=== PATIENT | male | born 1970 | race Caucasian/White ===

== ENCOUNTER 2017-12-30 16:10 | Emergency (ER) | payer MEDICAID ==
[2017-12-30] MEDS ORDERED: Fluor-I-Strip/Ful-Flo OP ONE ×2 (16:31→17:02)
[2017-12-30] MEDS ORDERED: Eye-Stream Solution ONE (16:31)
[2017-12-30] MEDS ORDERED: TETRACAINE 0.5% STERI-UNIT SOL OP ONE (16:31)
[2017-12-30 16:32] VITALS: O2SAT 98
[2017-12-30] MEDS ORDERED: Ciloxan OPHTH OP ONE (16:56)
[2017-12-30] MEDS ORDERED: Acular OPTH SOL OP ONE ×2 (16:56→17:06)
[2017-12-30] MEDS ORDERED: Adacel Vial IM ONE ×2 (16:56→17:07)
[2017-12-30] MEDS ORDERED: TETRACAINE 0.5% STERI-UNIT SOL OP STA (17:02)
[2017-12-30] MEDS ORDERED: Eye-Stream Solution OP ONE (17:02)
[2017-12-30] MEDS ORDERED: Ciloxan OPHTH ONE (17:06)
--- NOTE | 2017-12-30 17:07 | ERPHSYRPT ---
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 He thinks some welding dust went under his glasses and caused irritation or FB. Unsure last tetanus. No blurred vision. Wears glasses but no recent eye exam. Healthy. Timing/Duration: yesterday Visual Assistive Devices: Glasses Allergies/Adverse Reactions: No Known Drug Allergies Allergy (Verified 12/30/17 16:34) Hx Tetanus, Diphtheria Vaccination/Date Given: No Hx Influenza Vaccination/Date Given: No Hx Pneumococcal Vaccination/Date Given: No Immunizations Up to Date: Yes - Review of Systems Constitutional: No Symptoms Eyes: Discharge (clear), Eye Pain (right), Eye Redness (right), Photophobia, Tearing, No Itchy, No Vision Changes - Past Medical History Pertinent Past Medical History: No - Past Surgical History Past Surgical History: No - Social History Smoking Status: Current every day smoker Drug Use: none Patient Lives Alone: No - Nursing Vital Signs Nursing Vital Signs: Initial Vital Signs Temperature 98 F 12/30/17 16:10 Pulse Rate 92 H 12/30/17 16:10 Respiratory Rate 18 12/30/17 16:10 Blood Pressure 149/97 12/30/17 16:10 O2 Sat by Pulse Oximetry 98 12/30/17 16:10 Pain Scale Pain Intensity 7 - Physical Exam General Appearance: alert Vision Acuity Degree Evaluation Phase: Uncorrected Eye Exam: bilateral eye: PERRL, EOMI Ears, Nose, Throat Exam: moist mucous membranes Neurologic: alert, oriented x 3, cooperative Skin Exam: warm, dry, No rash SpO2: 98 Oxygen Delivery: Room Air Comments: right eye has conjunctival injection. Acuity ok per RN. Tetracaine used. Lid everted with no FB. There is punctate abrasion with fluoroscin uptake in centeral pupil area. No FB on swab. - Course Nursing assessment & vital signs reviewed: Yes Ordered Tests: Active Orders 24 hr Category Date Time Status Visual Acuity STAT Care 12/30/17 17:02 Active Medication Summary Discontinued Medications Generic Name Dose Route Start Last Admin Trade Name Mindy PRN Reason Stop Dose Admin Ciprofloxacin 2.5 ml 12/30/17 16:56 Ciloxan Ophth OP 12/30/17 16:57 STAT ONE Diphtheria/Tetanus/Acell Pertussis 0.5 ml 12/30/17 16:56 Adacel Vial IM 12/30/17 16:57 .ONCE ONE Eye Irrigation Solution Confirm 12/30/17 16:31 Eye-Stream Solution Administered 12/30/17 16:32 Dose 30 ml .ROUTE .STK-MED ONE Fluorescein Sodium Confirm 12/30/17 16:31 Cqdda-O-Brbwm/Ful-Jerome Administered 12/30/17 16:32 Dose 1 mg OP .STK-MED ONE Ketorolac Tromethamine 5 ml 12/30/17 16:56 Acular Opth Zarina OP 12/30/17 16:57 STAT ONE Tetracaine HCl Confirm 12/30/17 16:31 Tetracaine 0.5% Steri-Unit Zarina Administered 12/30/17 16:32 Dose 4 ml OP .STK-MED ONE - Progress Progress Note: 12/30/17 17:05 Tetanus up dated. Cipro and acular started. Advised eye exam Monday to rule out residual FB with slit lamp and to further assess abrasion. Counseled pt/family regarding: diagnosis, need for follow-up - Departure Time of Disposition: 17:06 Departure Disposition: Home Clinical Impression: corneal abrasion right eye Condition: Stable Critical Care Time: No Referrals: ARIANA HARMAN MD [Primary Care Provider] - JHON PIERCE, FREDA [NON-STAFF PHY W/O PRIVILEGES] - PAPI RIVAS [NON-STAFF PHY W/O PRIVILEGES] - Instructions: Foreign Body in Eye (DC), Corneal Abrasion (DC) Additional Instructions: EYE PROBLEM 1. If a patch is applied, your vision will be impaired. Do not drive. 2. The more you rest your good eye, the better your affected eye will feel. 3. Use any eye drops or ointments as prescribed by the emergency room physician. 4. See your family physician or return to the emergency department for any increasing pain or decreased vision. 5. Use good hygiene and keep eye clean. 6. Do not rub the eye. Cipro drop every 6 hours Ketorolac drop every 6 hours See eye doctor Monday
[2017-12-30 17:22] VITALS: BP 136/90; PULSE 68
== END 2017-12-30 17:15 | disposition home or self-care (01) ==
LOC: ED 16:10
DX: S05.01XA Injury of conjunctiva and corneal abrasion without foreign body, right eye, initial encounter (principal); W22.8XXA Striking against or struck by other objects, initial encounter
CPT/HCPCS: 90471; 90715; 99283; A9270-GY

== ENCOUNTER 2021-06-23 17:27 | Emergency (ER) | payer MEDICAID, OTHER ==
[2021-06-23] MEDS ORDERED: Sodium Chloride 0.9% 1000 ML 1,000 ML IV STA (17:54)
[2021-06-23] MEDS ORDERED: TYLENOL 325 MG PO ONE (17:54)
[2021-06-23] MEDS ORDERED: TORAdol 30 mg Injection IV ONE (17:54)
[2021-06-23] MEDS ORDERED: Compazine 10 MG/2 ML IV ONE (17:55)
[2021-06-23 18:05] LABS: Absolute Neutrophil Ct (ANC) 5.02 (1.4-6.9); BASOPHIL % 0.2 % (0.0-0.4); Basophil (Absolute #) 0.01 (0-0.4); Eosinophil % 2.1 % (0.00-5.0); Eosinophil (Absolute #) 0.13 (0-0.5); Hematocrit 41.2 % (42-50); Hemoglobin 14.1 gm/dl (12.5-18.0); Lymphocyte (Absolute #) 0.53 (1.0-4.6); Lymphocytes % 8.8 % (24.0-44.0); Mean Cell Volume 94.7 fl (78-100); Mean Corpuscular Hemoglobin 32.4 pg (26-32); Mean Corpuscular Hgb Concent. 34.2 g/dl (32-36); Mean Platelet Volume 9.5 fl (7.5-11.0); Monocyte (Absolute #) 0.36 (0.0-1.3); Neutrophil % 82.9 % (36.0-66.0); Platelet Count 239 K/mm3 (150-450); Red Blood Count 4.35 M/mm3 (4.1-5.6); Red Cell Distribution Width 13.7 % (11.5-14.0); White Blood Count 6.1 K/mm3 (4.0-10.5)
[2021-06-23] MEDS ORDERED: Sodium Chloride 0.9% 1000 ML 1,000 ML ONE ×2 (18:08→19:45)
[2021-06-23] MEDS ORDERED: Compazine 10 MG/2 ML ONE (18:08)
[2021-06-23] MEDS ORDERED: TORAdol 30 mg Injection ONE (18:08)
[2021-06-23] MEDS ORDERED: TYLENOL 325 MG ONE (18:08)
--- NOTE | 2021-06-23 18:15 | ERPHSYRPT ---
- History of Present Illness Time Seen by Provider: 06/23/21 17:40 Source: patient Exam Limitations: no limitations Patient Subjective Stated Complaint: Pt stated that he got his first covid vaccine on Monday and became sick on Monday and was tested and it came back today negative, pt has fever, body aches and headache, got vaccine on Monday but also had a positive test on Monday Triage Nursing Assessment: Pt was brought to the ER by his , tachycardic, hypertensive, tachypnic, rates head pain as 7/10, pulses normal, skin n/h/d, nausea, denies vomiting, denies diarrhea Physician History: Patient is a 51-year-old male presents to our ED for evaluation of a fever body aches and headache. Patient advises that he had his Covid vaccination on Monday. 3 days later he became ill. Patient had a Covid test that was negative. He advises that his tested positive. Patient took 800 mg of ibuprofen prior to arrival. Patient experienced some mild nausea however no vomiting. Patient is currently febrile with a mild tachycardia. Symptoms are constant. Symptoms are moderate in intensity. No specific worsening or improving factors. No diarrhea. No rash. No chest pain or shortness of breath no trauma. Patient states otherwise healthy. No known allergies. He voices no other complaints or concerns at this time. Timing/Duration: yesterday (1 day) Severity: moderate Modifying Factors: Improves With: ibuprofen Associated Symptoms: nausea, headaches, No abdominal pain, No shortness of breath (No chest pain or shortness of breath.), No rash, No syncope, No seizure, No weakness Allergies/Adverse Reactions: No Known Drug Allergies Allergy (Verified 06/23/21 17:50) Home Medications: No Reportable Medications [No Reported Medications] 06/23/21 [History] Hx Tetanus, Diphtheria Vaccination/Date Given: No Hx Influenza Vaccination/Date Given: No Hx Pneumococcal Vaccination/Date Given: No Travel Risk - International Travel Have you traveled outside of the country in past 3 weeks: No - Coronavirus Screening Symptoms: Fever, Headaches/Body Aches/Fatigue Close contact with a COVID-19 positive Pt in past 14-21 Days: No - Vaccine Status Have you recieved a Covid-19 vaccination: Yes 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[employer] - Vaccination Dates Date of 2cond Vaccination (if applicable): none - Review of Systems Constitutional: No Symptoms, No Fever, No Chills Eyes: No Symptoms Ears, Nose, & Throat: No Symptoms Respiratory: No Symptoms, No Cough, No Dyspnea Cardiac: No Symptoms, No Chest Pain, No Edema, No Syncope Abdominal/Gastrointestinal: No Symptoms, No Abdominal Pain, No Nausea, No Vomiting, No Diarrhea Genitourinary Symptoms: No Symptoms, No Dysuria Musculoskeletal: No Symptoms, No Back Pain, No Neck Pain Skin: No Symptoms, No Rash Neurological: No Symptoms, No Dizziness, No Focal Weakness, No Sensory Changes Psychological: No Symptoms Endocrine: No Symptoms Hematologic/Lymphatic: No Symptoms Immunological/Allergic: No Symptoms All Other Systems: Reviewed and Negative - Past Medical History Pertinent Past Medical History: No - Past Surgical History Past Surgical History: No - Social History Smoking Status: Current every day smoker Exposure to second hand smoke: Yes Drug Use: none Patient Lives Alone: No - Nursing Vital Signs Nursing Vital Signs: Initial Vital Signs Temperature 102.8 F 06/23/21 17:34 Pulse Rate 117 H 06/23/21 17:34 Respiratory Rate 23 06/23/21 17:34 Blood Pressure 145/101 06/23/21 17:34 O2 Sat by Pulse Oximetry 96 06/23/21 17:34 Pain Scale Pain Intensity 2 - Physical Exam General Appearance: no apparent distress, alert, other (Skin warm to touch.) Eye Exam: PERRL/EOMI, eyes nml inspection, No scleral icterus Ears, Nose, Throat Exam: normal ENT inspection, TMs normal, pharynx normal, moist mucous membranes Neck Exam: normal inspection, non-tender, supple, full range of motion Respiratory Exam: normal breath sounds, lungs clear, airway intact, No chest tenderness, No respiratory distress Cardiovascular Exam: regular rate/rhythm (Mild tachycardia), normal heart sounds, normal peripheral pulses Gastrointestinal/Abdomen Exam: soft, normal bowel sounds, No tenderness, No mass, No organomegaly, No splenomegaly Back Exam: normal inspection, normal range of motion, No CVA tenderness, No vertebral tenderness Extremity Exam: normal inspection, normal range of motion, pelvis stable Neurologic Exam: alert, oriented x 3, cooperative, medical assembler II-XII nml as tested, normal mood/affect, sensation nml, No motor deficits, No sensory deficit, No confusion, No agitation, No intoxicated appearance Skin Exam: normal color, warm, dry, No rash Lymphatic Exam: No adenopathy SpO2 Interpretation: normal SpO2: 96 O2 Delivery: Room Air - Course Nursing assessment & vital signs reviewed: Yes Ordered Tests: Active Orders 24 hr Category Date Time 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 06/23/21 18:24 Active IV Insertion STAT Care 06/23/21 18:24 Active CBC W DIFF Stat Lab 06/23/21 18:00 Completed CMP Stat Lab 06/23/21 18:00 Completed Medication Summary Generic Name Dose Route Start Last Admin Trade Name Mindy PRN Reason Stop Dose Admin Magnesium Sulfate/Dextrose 100 mls @ 100 mls/hr 06/23/21 18:30 06/23/21 19:07 Magnesium 1 Gm / 100 Ml D5w IV 06/23/21 20:29 100 mls/hr Q1H BERNICE Administration Potassium Chloride 20 meq in 100 mls @ 50 mls/hr 06/23/21 18:30 06/23/21 19:47 Potassium Chloride 20 Meq In Water 100ml IV 06/23/21 22:29 50 mls/hr Q2H BERNICE Administration Sodium Chloride 1,000 mls @ 250 mls/hr 06/23/21 19:45 06/23/21 19:47 Sodium Chloride 0.9% 1000 Ml IV 07/23/21 19:44 250 mls/hr .Q4H BERNICE Administration Discontinued Medications Generic Name Dose Route Start Last Admin Trade Name Mindy PRN Reason Stop Dose Admin Acetaminophen 975 mg 06/23/21 17:54 06/23/21 18:12 Tylenol 325 Mg PO 06/23/21 17:55 975 mg STAT ONE Administration Acetaminophen Confirm 06/23/21 18:08 Tylenol 325 Mg Administered 06/23/21 18:09 Dose 975 mg .ROUTE .STK-MED ONE Sodium Chloride 1,000 mls @ 999 mls/hr 06/23/21 17:54 06/23/21 20:06 Sodium Chloride 0.9% 1000 Ml IV 06/23/21 18:54 Infused .Q1H1M STA Infusion Sodium Chloride Confirm 06/23/21 18:08 Sodium Chloride 0.9% 1000 Ml Administered 06/23/21 18:09 Dose 1,000 mls @ ud .ROUTE .STK-MED ONE Ketorolac Tromethamine 30 mg 06/23/21 17:54 06/23/21 18:12 Toradol 30 Mg Injection IV 06/23/21 17:55 30 mg STAT ONE Administration Ketorolac Tromethamine Confirm 06/23/21 18:08 Toradol 30 Mg Injection Administered 06/23/21 18:09 Dose 30 mg .ROUTE .STK-MED ONE Potassium Chloride 40 meq 06/23/21 18:21 06/23/21 18:30 Klor Con 10 Meq PO 06/23/21 18:22 40 meq STAT ONE Administration Potassium Chloride Confirm 06/23/21 18:25 Klor Con 10 Meq Administered 06/23/21 18:26 Dose 40 meq PO .STK-MED ONE Prochlorperazine Edisylate 10 mg 06/23/21 17:55 06/23/21 18:12 Compazine 10 Mg/2 Ml IV 06/23/21 17:56 10 mg STAT ONE Administration Prochlorperazine Edisylate Confirm 06/23/21 18:08 Compazine 10 Mg/2 Ml Administered 06/23/21 18:09 Dose 10 mg .ROUTE .STK-MED ONE Lab/Rad Data: Laboratory Result Diagrams 06/23/21 18:00 06/23/21 18:00 Laboratory Results 06/23/21 06/23/21 Range/Units 18:00 18:00 WBC 6.1 (4.0-10.5) K/mm3 RBC 4.35 (4.1-5.6) M/mm3 Hgb 14.1 (12.5-18.0) gm/dl Hct 41.2 L (42-50) % MCV 94.7 (78-100) fl MCH 32.4 H (26-32) pg MCHC 34.2 (32-36) g/dl RDW 13.7 (11.5-14.0) % Plt Count 239 (150-450) K/mm3 MPV 9.5 (7.5-11.0) fl Gran % 82.9 H (36.0-66.0) % Eos # (Auto) 0.13 (0-0.5) Absolute Lymphs (auto) 0.53 L (1.0-4.6) Absolute Monos (auto) 0.36 (0.0-1.3) Lymphocytes % 8.8 L (24.0-44.0) % Monocytes % 6.0 (0.0-12.0) % Eosinophils % 2.1 (0.00-5.0) % Basophils % 0.2 (0.0-0.4) % Absolute Granulocytes 5.02 (1.4-6.9) Basophils # 0.01 (0-0.4) Sodium 136 L (137-145) mmol/L Potassium 2.9 L* (3.5-5.1) mmol/L Chloride 103 (98-107) mmol/L Carbon Dioxide 23 (22-30) mmol/L Anion Gap 13.3 (5-15) MEQ/L BUN 10 (9-20) mg/dL Creatinine 1.06 (0.66-1.25) mg/dL Estimated GFR > 60.0 ML/MIN Glucose 139 H (74-106) mg/dL Calcium 9.1 (8.4-10.2) mg/dL Total Bilirubin 0.40 (0.2-1.3) mg/dL AST 29 (17-59) U/L ALT 21 (0-50) U/L Alkaline Phosphatase 79 (38-126) U/L Serum Total Protein 6.7 (6.3-8.2) g/dL Albumin 4.0 (3.5-5.0) g/dL - Progress Progress: improved Progress Note: Patient reassessed. He feels much better. Patient states he is ready for discharge. Vitals stable. Oxygen saturation and heart rate are within normal limits. Patient was hypokalemic. Potassium infused. Magnesium infused as potassium is typically low during states of hypokalemia. Patient agrees to follow-up with his primary care doctor within 48 hours for reevaluation. He vo ices no other complaints concerns at this time. Portions of this note were created with voice recognition technology. There may be grammatical, spelling, punctuation or sound alike errors 06/23/21 21:14 Counseled pt/family regarding: lab results, diagnosis, need for follow-up - Departure Departure Disposition: Home Clinical Impression: Viral syndrome Condition: Stable Critical Care Time: No Referrals: USMAN CADE [Primary Care Provider] - Additional Instructions: Discharge/Care Plan ANDRÉS MATIAS was seen on 06/23/21 in the Emergency Room. The patient was couns eled regarding Diagnosis,Lab results, Imaging studies, need for follow up and when to return to the Emergency Room. Prescriptions given: Discharge Note I have spoken with the patient and/or caregivers. I have explained the patient's condition, diagnosis and treatment plan based on the information available to me at this time. I have answered the patient's and/or caregiver's questions and addressed any concerns. The patient and/or caregivers have as good understanding of the patient's diagnosis, condition and treatment plan as can be expected at this point. The vital signs have been stable. The patient's condition is stable and appropriate for discharge from the emergency department. The patient will pursue further outpatient evaluation with the primary care physician or other designated or consulting physician as outlined in the discharge instructions. The patient and/or caregivers are agreeable to this plan of care and follow-up instructions have been explained in detail. The patient and/or caregivers have received these instruction. The patient/and or caregivers are aware that any significant change in condition or worsening of symptoms should prompt an immediate return to this or the closest emergency department or call 911.
[2021-06-23 18:17] LABS: ALKALINE PHOSPHATASE 79 U/L (38-126); ANION GAP 13.3 MEQ/L (5-15); BLOOD UREA NITROGEN 10 mg/dL (9-20); CHLORIDE 103 mmol/L (98-107); Calcium 9.1 mg/dL (8.4-10.2); Carbon Dioxide 23 mmol/L (22-30); Creatinine 1 1.06 mg/dL (0.66-1.25); EST GLOMERULAR FILTRATION RATE > 60.0 ML/MIN; Glucose 139 mg/dL (74-106); SGOT/AST 29 U/L (17-59); SGPT/ALT 21 U/L (0-50); SODIUM 136 mmol/L (137-145); Total Protein 6.7 g/dL (6.3-8.2)
[2021-06-23 18:20] LABS: Potassium 2.9 mmol/L (3.5-5.1)
[2021-06-23] MEDS ORDERED: Klor Con 10 MEQ PO ONE ×2 (18:21→18:25)
[2021-06-23] MEDS ORDERED: POTASSIUM CHLORIDE 20 mEq IN WATER 100ML 100 ML IV ONE ×2 (18:25→19:15)
[2021-06-23] MEDS ORDERED: Magnesium 1 Gm / 100 Ml D5W*** 100 ML IV ONE ×2 (18:25→19:05)
[2021-06-23] MEDS: Magnesium 1 Gm / 100 Ml D5W*** 100 ML IV SCH ×2 (18:30→19:07)
[2021-06-23] MEDS: POTASSIUM CHLORIDE 20 mEq IN WATER 100ML 20 MEQ/100 ML BAG IV SCH ×2 (18:30→19:47)
[2021-06-23] MEDS ORDERED: Sodium Chloride 0.9% 1000 ML 1,000 ML IV SCH (19:45)
[2021-06-23 22:03] VITALS: BP 110/78; PULSE 78; O2SAT 97
[2021-06-24 05:07] LABS: Slide Review 1 YES
== END 2021-06-23 22:03 | disposition home or self-care (01) ==
LOC: ED 17:27
DX: B34.9 Viral infection, unspecified (principal)
CPT/HCPCS: 36000; 36415; 80053; 85025; 93041; 96360; 96365; 96366; 96367; 96374; 96375; 99285; J1885; J3475; J3480; A9270-GY

== ENCOUNTER 2021-12-09 14:33 | Emergency (ER) | payer SELFPAY ==
[2021-12-09 15:58] VITALS: PULSE 85; O2SAT 94
--- NOTE | 2021-12-09 16:41 | ERPHSYRPT ---
- History of Present Illness Time Seen by Provider: 12/09/21 16:02 Patient Subjective Stated Complaint: pt c/o of hypertension Triage Nursing Assessment: Pt brought self to the ER, hypertensive, denies pain, pt used to be on metoprolol but hasn't been for a long time but took one a litlle bit ago thinking it would lower his blood pressure, is pressure at home was 159/113, pulses normal, skin n/w/d, doesn't appear to be in any distress Physician History: 51 years old male with history of heavy tobacco abuse, hypertension not taking any medication for quite some time presented in the ER with chief complaint of elevated blood pressure 150 systolic earlier today at home. Patient report he has not been feeling well with cough congestion, stopped up nose/head cold with minimal headache and has been tested twice with negative COVID-19 although his is tested positive. Denies any chest pain but minimal nonproductive cough at times. Feeling of malaise. He checked his blood pressure and it was elevated, took his leftover from previous metoprolol 50 mg and rechecked and it did not improve and decided to reported in the ER. Denies any chest pain palpitations or shortness of breath. Denies any blurry vision, numbness tingling or weakness. Timing/Duration: today, gradual onset Severity: moderate Associated Symptoms: cough, malaise Allergies/Adverse Reactions: No Known Drug Allergies Allergy (Verified 12/09/21 15:58) Hx Tetanus, Diphtheria Vaccination/Date Given: No Hx Influenza Vaccination/Date Given: No Hx Pneumococcal Vaccination/Date Given: No Travel Risk - International Travel Have you traveled outside of the country in past 3 weeks: No - Coronavirus Screening Are you exhibiting any of the following symptoms?: No Close contact with a COVID-19 positive Pt in past 14-21 Days: No - Vaccine Status Have you recieved a Covid-19 vaccination: Yes 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: [employer] - Vaccination Dates Date of 2cond Vaccination (if applicable): none - Review of Systems Constitutional: No Symptoms Eyes: No Symptoms Ears, Nose, & Throat: Nose Congestion, Sinus Drainage Respiratory: Cough Cardiac: No Symptoms Abdominal/Gastrointestinal: No Symptoms Genitourinary Symptoms: No Symptoms Musculoskeletal: Myalgias Skin: No Symptoms Neurological: Headache Psychological: No Symptoms Endocrine: No Symptoms Hematologic/Lymphatic: No Symptoms Immunological/Allergic: No Symptoms - Past Medical History Pertinent Past Medical History: No - Past Surgical History Past Surgical History: No - Social History Smoking Status: Current every day smoker Exposure to second hand smoke: Yes Drug Use: none Patient Lives Alone: No - Nursing Vital Signs Nursing Vital Signs: Initial Vital Signs Pulse Rate 85 12/09/21 15:40 Blood Pressure 164/103 12/09/21 15:40 O2 Sat by Pulse Oximetry 94 L 12/09/21 15:40 Pain Scale Pain Intensity 0 - Physical Exam General Appearance: no apparent distress, alert, anxiety Eye Exam: PERRL/EOMI, eyes nml inspection Ears, Nose, Throat Exam: normal ENT inspection, TMs normal, pharynx normal, moist mucous membranes Neck Exam: normal inspection, non-tender, supple, full range of motion Respiratory Exam: normal breath sounds, lungs clear Cardiovascular Exam: regular rate/rhythm, normal heart sounds Gastrointestinal/Abdomen Exam: soft, normal bowel sounds Back Exam: normal inspection, normal range of motion Extremity Exam: normal inspection, normal range of motion Neurologic Exam: alert, oriented x 3, cooperative, management developer II-XII nml as tested, nml cerebellar function, nml station & gait, sensation nml, No normal mood/affect (Anxious) Skin Exam: normal color SpO2 Interpretation: normal SpO2: 94 O2 Delivery: Room Air - Course EKG Interpreted by Me: RATE (73), Sinus Rhythm, NORMAL AXIS, NORMAL INTERVALS, NORMAL QRS - Progress Progress: unchanged Progress Note: 12/09/21 16:43 Patient is not in any distress. Lungs bilateral clear to auscultation. Maintaining oxygen saturation around 96% on room air. Heart rate in 70s. Although blood pressure is mildly elevated in 160s, could be some element of whitecoat hypertension. But I believe patient needs to be on antihypertensives. He has been taking in the past metoprolol 50 which I would restart him and have him outpatient follow-up with primary care. Recommended supportive care for URI symptoms and outpatient follow-up. Counseled pt/family regarding: diagnosis, need for follow-up - Departure Departure Disposition: Home Clinical Impression: Hypertension, URI (upper respiratory infection) Condition: Stable Critical Care Time: No Referrals: USMAN CADE [Primary Care Provider] - Follow up/PCP as directed (1-2 days for reevaluation) Instructions: Malignant Hypertension (DC) Additional Instructions: Take Tylenol as as needed for aches and pains/headaches. Follow-up with primary care for reevaluation. Monitor your blood pressure regularly, keep a log and follow-up with PCP to see if needs any adjustment in medications. Return to ER for persistent high blood pressure, headache, numbness tingling weakness or blurry vision etc. Prescriptions: Metoprolol Succinate 50 mg [Toprol Xl 50 MG] 50 mg PO DAILY 30 Days #30 tablet
[2021-12-09 16:58] VITALS: BP 150/116
== END 2021-12-09 16:58 | disposition home or self-care (01) ==
LOC: ED 14:33
DX: I10 Essential (primary) hypertension (principal); J06.9 Acute upper respiratory infection, unspecified; Z72.0 Tobacco use; R05.9 Cough, unspecified; R09.81 Nasal congestion; R51.9 Headache, unspecified; R53.81 Other malaise; Z20.822 Contact with and (suspected) exposure to COVID-19
CPT/HCPCS: 99283

== ENCOUNTER 2023-11-21 11:51 | Observation (INO) | payer OTHER ==
[2023-11-21] MEDS ORDERED: Sodium Chloride 0.9% 1000 ML 1,000 ML IV SCH (12:30)
--- NOTE | 2023-11-21 12:30 | ERPHSYRPT ---
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 Pt ambulates with a slow gait, able to speak in clear full sentences. Pt resting comfortably on the bed. Physician History: Patient is a 53-year-old male presents to our ED for evaluation of dizziness and near syncope. 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 Patient began to feel "odd". Patient states the room began to spin he felt as though he was going to pass out. No associated chest pain or shortness of breath. No nausea vomiting or diaphoresis. No numbness tingling or weakness. Symptoms have improved but not resolved. Symptoms when present are moderate in intensity. No specific worsening or improving factors. Patient is a smoker and history of hypertension . Patient states otherwise healthy. He voices no other complaints or concerns at this time. Portions of this note were created with voice recognition technology. There may be grammatical, spelling, punctuation or sound alike errors Timing/Duration: today Severity: moderate Modifying Factors: Improves With: nothing Associated Symptoms: denies symptoms Allergies/Adverse Reactions: No Known Drug Allergies Allergy (Verified 12/09/21 15:58) Home Medications: Amlodipine Besylate 5 mg [Norvasc 5 mg] 2.5 mg PO DAILY 11/21/23 [History] Hx Tetanus, Diphtheria Vaccination/Date Given: No Hx Influenza Vaccination/Date Given: No Hx Pneumococcal Vaccination/Date Given: No Immunizations Up to Date: No Travel Risk - International Travel Have you traveled outside of the country in past 3 weeks: No - Coronavirus Screening Are you exhibiting any of the following symptoms?: No Close contact with a COVID-19 positive Pt in past 14-21 Days: No - Vaccine Status Have you recieved a Covid-19 vaccination: 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[employer]: [employer] - Vaccination Dates Date of 2cond Vaccination (if applicable): none - Review of Systems Constitutional: No Symptoms, No Fever, No Chills Eyes: No Symptoms Ears, Nose, & Throat: No Symptoms Respiratory: No Symptoms, No Cough, No Dyspnea Cardiac: No Symptoms, No Chest Pain, No Edema, No Syncope Abdominal/Gastrointestinal: No Symptoms, No Abdominal Pain, No Nausea, No Vomiting, No Diarrhea Genitourinary Symptoms: No Symptoms, No Dysuria Musculoskeletal: No Symptoms, No Back Pain, No Neck Pain Skin: No Symptoms, No Rash Neurological: No Symptoms, No Dizziness, No Focal Weakness, No Sensory Changes Psychological: No Symptoms Endocrine: No Symptoms Hematologic/Lymphatic: No Symptoms Immunological/Allergic: No Symptoms All Other Systems: Reviewed and Negative - Past Medical History Pertinent Past Medical History: Yes Cardiac History: Hypertension - Past Surgical History Past Surgical History: No - Social History Smoking Status: Current every day smoker How long have you smoked: years Exposure to second hand smoke: Yes Drug Use: none Patient Lives Alone: No - Nursing Vital Signs Nursing Vital Signs: Initial Vital Signs Temperature 97.0 F 11/21/23 12:05 Pulse Rate 109 H 11/21/23 12:05 Respiratory Rate 20 11/21/23 12:05 Blood Pressure 127/86 11/21/23 12:05 O2 Sat by Pulse Oximetry 96 11/21/23 12:05 Pain Scale Pain Intensity 0 - Physical Exam General Appearance: no apparent distress, alert Eye Exam: PERRL/EOMI, eyes nml inspection Ears, Nose, Throat Exam: normal ENT inspection, TMs normal, pharynx normal, moist mucous membranes Neck Exam: normal inspection, non-tender, supple, full range of motion Respiratory Exam: normal breath sounds, lungs clear, No respiratory distress Cardiovascular Exam: regular rate/rhythm, normal heart sounds, normal peripheral pulses Gastrointestinal/Abdomen Exam: soft, normal bowel sounds, No tenderness, No mass Back Exam: normal inspection, normal range of motion, No CVA tenderness, No vertebral tenderness Extremity Exam: normal inspection, normal range of motion, pelvis stable Neurologic Exam: alert, oriented x 3, cooperative, normal mood/affect, nml cerebellar function, nml station & gait, sensation nml, No motor deficits Skin Exam: normal color, warm, dry, No rash Lymphatic Exam: No adenopathy SpO2 Interpretation: normal SpO2: 96 O2 Delivery: Room Air - Course Nursing assessment & vital signs reviewed: Yes EKG Interpreted by Me: RATE (99), Sinus Rhythm, NORMAL AXIS, NORMAL INTERVALS - CT Exams Head CT Interpretation: Tele-radiologist Report (No acute intracranial pathology) Ordered Tests: Active Orders 24 hr Category Date Time Status Needle [employer]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 STAT Care 11/21/23 12:21 Active EKG-ER Only STAT Care 11/21/23 12:21 Active IV Insertion STAT Care 11/21/23 12:21 Active Pulse Oximetry (ED) STAT Care 11/21/23 12:21 Active Tele-Health Consult ROUTINE Cons 11/21/23 13:27 Active HEAD WITHOUT CONTRAST [CT] Stat Exams 11/21/23 12:23 Completed CBC W DIFF Stat Lab 11/21/23 12:20 Completed CMP Stat Lab 11/21/23 12:20 Completed TROPONIN Q4H Lab 11/21/23 12:20 Completed TROPONIN Q4H Lab 11/21/23 16:30 Ordered TROPONIN Q4H Lab 11/21/23 20:30 Ordered UA W/RFX UR CULTURE Stat Lab 11/21/23 14:25 Completed Urine Triage Profile Stat Lab 11/21/23 14:25 Completed VBG [VENOUS BLOOD GAS] Stat Lab 11/21/23 14:29 Completed Medication Summary Generic Name Dose Route Start Last Admin Trade Name Freq PRN Reason Stop Dose Admin Sodium Chloride 1,000 mls @ 50 mls/hr 11/21/23 12:30 11/21/23 12:29 Sodium Chloride 0.9% 1000 Ml IV 12/21/23 12:29 50 mls/hr .Q20H BERNICE Administration Lab/Rad Data: Laboratory Result Diagrams 11/21/23 12:20 11/21/23 12:20 Laboratory Results 11/21/23 11/21/23 11/21/23 Range/Units 14:29 14:25 14:25 WBC (4.0-10.5) x10^3/uL RBC (4.1-5.6) x10^6/uL Hgb (12.5-18.0) g/dL Hct (42-50) % MCV (78-100) fL MCH (26-32) pg MCHC (32-36) g/dL RDW (11.5-14.0) % Plt Count (150-450) x10^3/uL MPV (7.5-11.0) fL Gran % (36.0-66.0) % Immature Gran % (Auto) (0.00-0.4) % Nucleat RBC Rel Count (0.00-0.1) % Eos # (Auto) (0-0.5) x10^3/uL Immature Gran # (Auto) (0.00-0.03) x10^3u/L Absolute Lymphs (auto) (1.0-4.6) x10^3/uL Absolute Monos (auto) (0.0-1.3) x10^3/uL Absolute Nucleated RBC (0.00-0.01) x10^3u/L Lymphocytes % (24.0-44.0) % Monocytes % (0.0-12.0) % Eosinophils % (0.00-5.0) % Basophils % (0.0-0.4) % Absolute Granulocytes (1.4-6.9) x10^3/uL Basophils # (0-0.4) x10^3/uL pO2/FiO2 Ratio 21.0 % VBG pH 7.42 (7.32-7.42) VBG pCO2 at Pat Temp 37 L (42-55) mm/Hg VBG pO2 at Pat Temp 24 L (25-40) mm/Hg VBG HCO3 24.0 (22-28) meq/L VBG O2 Sat (Robert) 67.7 L (95-100) VBG Base Excess -0.1 (-2.0-2.0) VBG Hemoglobin 15.9 VBG Carboxyhemoglobin 42.0 H* (0.0-6.9) % T HGB POC Potassium 4.1 (3.5-5.1) Sodium (137-145) mmol/L Potassium (3.5-5.1) mmol/L Chloride (98-107) mmol/L Carbon Dioxide (22-30) mmol/L Anion Gap (5-15) MEQ/L BUN (9-20) mg/dL Creatinine (0.66-1.25) mg/dL Estimated GFR ML/MIN Glucose (74-106) mg/dL Calcium (8.4-10.2) mg/dL Total Bilirubin (0.2-1.3) mg/dL AST (17-59) U/L ALT (0-50) U/L Alkaline Phosphatase (38-126) U/L Troponin I (0.000-0.034) ng/mL Serum Total Protein (6.3-8.2) g/dL Albumin (3.5-5.0) g/dL Urine Color Yellow (Yellow) Urine Appearance Clear (Clear) Urine pH 7.0 (4.6-8.0) Ur Specific [place] <=1.005 (1.005-1.030) Urine Protein Negative (Negative) Urine Glucose (UA) Negative (Negative) mg/dL Urine Ketones Negative (Negative) Urine Blood Negative (Negative) Urine Nitrite Negative (Negative) Urine Bilirubin Negative (Negative) Urine Urobilinogen 0.2 (0.2) mg/dL Ur Leukocyte Esterase Trace A (Negative) U Hyaline Cast (Auto) NONE SEEN (0-2) /LPF Urine Microscopic RBC 0-2 (0-5) /HPF Urine Microscopic WBC 0-2 (0-5) /HPF Ur Epithelial Cells None Seen (None Seen) /HPF Urine Bacteria None Seen (None Seen) /HPF Urine Culture Reflexed NO (NO) Urine Opiates Level NEGATIVE (NEGATIVE) Ur Methadone NEGATIVE (NEGATIVE) Urine Barbiturates NEGATIVE (NEGATIVE) Ur Phencyclidine (PCP) NEGATIVE (NEGATIVE) Urine Amphetamine NEGATIVE (NEGATIVE) U Benzodiazepine Level NEGATIVE (NEGATIVE) Urine Cocaine NEGATIVE (NEGATIVE) Urine Marijuana (THC) NEGATIVE (NEGATIVE) 11/21/23 11/21/23 11/21/23 Range/Units 12:20 12:20 12:20 WBC 10.1 (4.0-10.5) x10^3/uL RBC 4.82 (4.1-5.6) x10^6/uL Hgb 15.9 (12.5-18.0) g/dL Hct 44.9 (42-50) % MCV 93.2 (78-100) fL MCH 33.0 H (26-32) pg MCHC 35.4 (32-36) g/dL RDW 12.8 (11.5-14.0) % Plt Count 269 (150-450) x10^3/uL MPV 9.3 (7.5-11.0) fL Gran % 64.6 (36.0-66.0) % Immature Gran % (Auto) 0.4 (0.00-0.4) % Nucleat RBC Rel Count 0.0 (0.00-0.1) % Eos # (Auto) 0.29 (0-0.5) x10^3/uL Immature Gran # (Auto) 0.04 H (0.00-0.03) x10^3u/L Absolute Lymphs (auto) 2.82 (1.0-4.6) x10^3/uL Absolute Monos (auto) 0.38 (0.0-1.3) x10^3/uL Absolute Nucleated RBC 0.00 (0.00-0.01) x10^3u/L Lymphocytes % 27.8 (24.0-44.0) % Monocytes % 3.8 (0.0-12.0) % Eosinophils % 2.9 (0.00-5.0) % Basophils % 0.5 (0.0-0.4) % Absolute Granulocytes 6.55 (1.4-6.9) x10^3/uL Basophils # 0.05 (0-0.4) x10^3/uL pO2/FiO2 Ratio % VBG pH (7.32-7.42) VBG pCO2 at Pat Temp (42-55) mm/Hg VBG pO2 at Pat Temp (25-40) mm/Hg VBG HCO3 (22-28) meq/L VBG O2 Sat (Robert) (95-100) VBG Base Excess (-2.0-2.0) VBG Hemoglobin VBG Carboxyhemoglobin (0.0-6.9) % T HGB POC Potassium (3.5-5.1) Sodium 138 (137-145) mmol/L Potassium 3.4 L (3.5-5.1) mmol/L Chloride 105 (98-107) mmol/L Carbon Dioxide 22 (22-30) mmol/L Anion Gap 13.9 (5-15) MEQ/L BUN 10 (9-20) mg/dL Creatinine 0.91 (0.66-1.25) mg/dL Estimated GFR 101.4 ML/MIN Glucose 114 H (74-106) mg/dL Calcium 9.3 (8.4-10.2) mg/dL Total Bilirubin 0.50 (0.2-1.3) mg/dL AST 25 (17-59) U/L ALT 21 (0-50) U/L Alkaline Phosphatase 111 (38-126) U/L Troponin I < 0.012 (0.000-0.034) ng/mL Serum Total Protein 7.6 (6.3-8.2) g/dL Albumin 4.6 (3.5-5.0) g/dL Urine Color (Yellow) Urine Appearance (Clear) Urine pH (4.6-8.0) Ur Specific [place] (1.005-1.030) Urine Protein (Negative) Urine Glucose (UA) (Negative) mg/dL Urine Ketones (Negative) Urine Blood (Negative) Urine Nitrite (Negative) Urine Bilirubin (Negative) Urine Urobilinogen (0.2) mg/dL Ur Leukocyte Esterase (Negative) U Hyaline Cast (Auto) (0-2) /LPF Urine Microscopic RBC (0-5) /HPF Urine Microscopic WBC (0-5) /HPF Ur Epithelial Cells (None Seen) /HPF Urine Bacteria (None Seen) /HPF Urine Culture Reflexed (NO) Urine Opiates Level (NEGATIVE) Ur Methadone (NEGATIVE) Urine Barbiturates (NEGATIVE) Ur Phencyclidine (PCP) (NEGATIVE) Urine Amphetamine (NEGATIVE) U Benzodiazepine Level (NEGATIVE) Urine Cocaine (NEGATIVE) Urine Marijuana (THC) (NEGATIVE) - Progress Progress: improved Progress Note: Management discussed with neurologist at [address] Mcallister at 2:45 PM. Plan of care discussed with patient. He agrees to admission to [facility] for further evaluation and treatment. 53-year-old male presents to our ED for evaluation of dizziness and near syncope . Physical exam essentially nonremarkable. In light of patient's symptoms neurologist consulted. CT head negative for acute intracranial pathology. Neurologist recommends admission for MRI. During the course of patient's stay he advises that he potentially been exposed to carbon monoxide. We obtain a carbon monoxide level. Carbon oxide levels were 42%. This is extremely high which may potentially explain patient's symptoms. We initiated therapy by placing patient on a nonrebreather mask, 100% oxygen. Patient will be admitted for further evaluation and treatment. Portions of this note were created with voice recognition technology. There may be grammatical, spelling, punctuation or sound alike errors Complexity of problem addressed is moderate acute complicated No critical care time Complexity of data reviewed and analyzed is extensive. Test ordered test reviewed. Results analyzed and correlated clinically with history and physical examination. Management discussed with neurologist and hospitalist. Risk of complication and or risk of morbidity/mortality of patient management is high. Patient requires hospitalization for further evaluation and treatment. Vital stable. Time spent to admit patient is approximately 30 minutes. Plan of care established for shared decision making. No social determinants of health present impede follow-up. Portions of this note were created with voice recognition technology. There may be grammatical, spelling, punctuation or sound alike errors 11/21/23 15:03 Counseled pt/family regarding: lab results, diagnosis, rad results - Departure Departure Disposition: Observation Clinical Impression: Dizziness, Near syncope, Elevated carbon monoxide Condition: Stable Critical Care Time: No Referrals: USMAN CADE [Primary Care Provider] - Follow up/PCP as directed
[2023-11-21 12:38] LABS: Absolute Neutrophil Ct (ANC) 6.55 x10^3/uL (1.4-6.9); BASOPHIL % 0.5 % (0.0-0.4); Basophil (Absolute #) 0.05 x10^3/uL (0-0.4); Eosinophil % 2.9 % (0.00-5.0); Eosinophil (Absolute #) 0.29 x10^3/uL (0-0.5); Hematocrit 44.9 % (42-50); Hemoglobin 15.9 g/dL (12.5-18.0); IMMATURE GRAN # 0.04 x10^3u/L (0.00-0.03); IMMATURE GRAN % 0.4 % (0.00-0.4); Lymphocyte (Absolute #) 2.82 x10^3/uL (1.0-4.6); Lymphocytes % 27.8 % (24.0-44.0); Mean Cell Volume 93.2 fL (78-100); Mean Corpuscular Hgb Concent. 35.4 g/dL (32-36); Mean Platelet Volume 9.3 fL (7.5-11.0); Monocyte (Absolute #) 0.38 x10^3/uL (0.0-1.3); Monocytes % 3.8 % (0.0-12.0); Neutrophil % 64.6 % (36.0-66.0); Platelet Count 269 x10^3/uL (150-450); Red Blood Count 4.82 x10^6/uL (4.1-5.6); Red Cell Distribution Width 12.8 % (11.5-14.0); White Blood Count 10.1 x10^3/uL (4.0-10.5)
--- NOTE | 2023-11-21 12:53 | XRAY ---
Indication: Dizziness. Multiple contiguous axial images obtained through the head without contrast. Comparison: None Normal appearing brain parenchyma, ventricles, and bony calvarium for patient's age. Visualized paranasal sinuses and mastoid air cells are clear. Impression: Normal CT head without contrast exam.
[2023-11-21 13:01] LABS: ALBUMIN 4.6 g/dL (3.5-5.0); ANION GAP 13.9 MEQ/L (5-15); BILIRUBIN,TOTAL 0.5 mg/dL (0.2-1.3); Calcium 9.3 mg/dL (8.4-10.2); Creatinine 1 0.91 mg/dL (0.66-1.25); EST GLOMERULAR FILTRATION RATE 101.4 ML/MIN; Potassium 3.4 mmol/L (3.5-5.1); Total Protein 7.6 g/dL (6.3-8.2)
[2023-11-21 14:30] LABS: VBG BASE EXCESS -0.1 (-2.0-2.0); VBG HEMOGLOBIN 15.9; VBG O2 SATURATION 67.7 (95-100); VBG POTASSIUM 4.1 (3.5-5.1); VBG pH 7.42 (7.32-7.42)
[2023-11-21 14:36] LABS: ADD URINE CULTURE? NO (NO); Appearance Clear (Clear); Bacteria None Seen /HPF (None Seen); Bilirubin Negative (Negative); Blood Negative (Negative); Epithelial Cells None Seen /HPF (None Seen); Glucose, Urine Negative (Negative); Hyaline Casts NONE SEEN /LPF (0-2); Ketones Negative (Negative); Leukocyte Esterase Trace (Negative); Nitrite Negative (Negative); Protein,Urine Dip Negative (Negative); RBC 0-2 /HPF (0-5); Specific Gravity <=1.005 (1.005-1.030); Urobilinogen 0.2 mg/dL (0.2); WBC 0-2 /HPF (0-5)
[2023-11-21 14:49] LABS: Amphetamine,Urine NEGATIVE (NEGATIVE); Barbiturate,Urine NEGATIVE (NEGATIVE); Benzodiazepine,Urine NEGATIVE (NEGATIVE); Cocaine,Urine NEGATIVE (NEGATIVE); Methadone,Urine NEGATIVE (NEGATIVE); Opiate,Urine NEGATIVE (NEGATIVE); PCP,Urine NEGATIVE (NEGATIVE); THC,Urine NEGATIVE (NEGATIVE)
[2023-11-21] MEDS ORDERED: BABY ASPIRIN 81 MG CHEW PO ONE (15:33)
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
[2023-11-21] MEDS ORDERED: Zofran 4 MG/2 ML VIAL IV PRN (16:27)
[2023-11-21] MEDS ORDERED: TYLENOL 325 MG PO PRN (16:27)
[2023-11-21 16:29] LABS: VBG BASE EXCESS 1.4 (-2.0-2.0); VBG HCO3- 26.6 meq/L (22-28); VBG HEMOGLOBIN 14.7; VBG O2 SATURATION 65.8 (95-100); VBG POTASSIUM 3.9 (3.5-5.1); VBG pH 7.4 (7.32-7.42)
[2023-11-21 16:30] LABS: VBG CARBOXYHEMOGLOBIN 15.1 % T HGB (0.0-6.9)
[2023-11-21 17:30] LABS: VBG BASE EXCESS -0.5 (-2.0-2.0); VBG CARBOXYHEMOGLOBIN 11.1 % T HGB (0.0-6.9); VBG HCO3- 24.2 meq/L (22-28); VBG HEMOGLOBIN 14.7; VBG O2 SATURATION 94.1 (95-100); VBG POTASSIUM 3.9 (3.5-5.1); VBG pH 7.4 (7.32-7.42)
[2023-11-21 19:58] LABS: VBG BASE EXCESS 0.3 (-2.0-2.0); VBG HCO3- 24.6 meq/L (22-28); VBG HEMOGLOBIN 14.2; VBG POTASSIUM 3.7 (3.5-5.1); VBG pH 7.42 (7.32-7.42)
[2023-11-21 20:00] LABS: VBG CARBOXYHEMOGLOBIN 8.3 % T HGB (0.0-6.9)
[2023-11-21] MEDS ORDERED: ECOTRIN 81 MG PO ONE (20:09)
[2023-11-21] MEDS: Nicoderm CQ 21 MG TOP SCH (21:19)
[2023-11-22 04:34] LABS: VBG BASE EXCESS -1.1 (-2.0-2.0); VBG HCO3- 22.6 meq/L (22-28); VBG HEMOGLOBIN 14.1; VBG O2 SATURATION 96.3 (95-100); VBG POTASSIUM 3.8 (3.5-5.1); VBG pH 7.43 (7.32-7.42)
[2023-11-22 04:45] LABS: ALBUMIN 3.7 g/dL (3.5-5.0); ANION GAP 7.7 MEQ/L (5-15); BILIRUBIN,TOTAL 0.5 mg/dL (0.2-1.3); Calcium 8.5 mg/dL (8.4-10.2); Creatinine 1 0.81 mg/dL (0.66-1.25); EST GLOMERULAR FILTRATION RATE 106.1 ML/MIN; Potassium 3.7 mmol/L (3.5-5.1); Total Protein 6.2 g/dL (6.3-8.2)
[2023-11-22 04:52] LABS: Hematocrit 40.1 % (42-50); Hemoglobin 13.3 g/dL (12.5-18.0); Mean Cell Volume 95.2 fL (78-100); Mean Corpuscular Hemoglobin 31.6 pg (26-32); Mean Corpuscular Hgb Concent. 33.2 g/dL (32-36); Mean Platelet Volume 9.7 fL (7.5-11.0); Platelet Count 240 x10^3/uL (150-450); Red Blood Count 4.21 x10^6/uL (4.1-5.6); Red Cell Distribution Width 13.2 % (11.5-14.0); White Blood Count 8.6 x10^3/uL (4.0-10.5)
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
[2023-11-22] MEDS: Nicoderm CQ 21 MG TOP SCH (09:38)
--- NOTE | 2023-11-22 11:38 | XRAY ---
Indication: Syncope. Normal CT head. Two-dimensional sonogram and color Doppler imaging carotid arteries of the neck performed. Comparison: None Examination right carotid circulation demonstrates widely patent common carotid, carotid bulb, internal carotid, and external carotid arteries. PSV CCA is 86 cm/s. PSV ICA is 46 cm/s. ICA/CCA ratio is 0.5. Normal antegrade vertebral artery flow. Examination left breast circulation also demonstrates widely patent common carotid, carotid bulb, internal carotid, and external carotid arteries. PSV CCA 74 cm/s. PSV ICA is 67 cm/s. ICA/CCA ratio is 0.9. Normal antegrade vertebral artery flow. Impression: Widely patent carotid arteries of the neck. Velocity measurements and ratios are also negative for hemodynamically significant flow-limiting stenosis.
[2023-11-22 12:26] VITALS: BP 119/87; PULSE 68; RESP 16; TEMP 97.6; O2SAT 97
--- NOTE | 2023-11-22 13:23 | ECHO ---
Transthoracic echocardiographic examination and color Doppler was done on 11/22/2023. INDICATION: Syncope. IMPRESSION: 1) NO REGIONAL WALL MOTION ABNORMALITY. ESTIMATED GLOBAL LEFT VENTRICULAR EJECTION FRACTION 60%. 2) TRACE MITRAL REGURGITATION. 3) TRACE TRICUSPID REGURGITATION. RIGHT VENTRICULAR SYSTOLIC PRESSURE OF 29 MM OF MERCURY. The left ventricle is visualized and demonstrated adequate motion of all the segments. Estimated global left ventricular ejection fraction 60%. The left ventricular thickness is normal. The mitral valve is seen and this opens adequately. There is trace mitral regurgitation. Left atrium is normal. The aortic valve opens adequately. Peak gradient across the aortic valve is 6 mm of Mercury. The right side chambers are normal. There is trace tricuspid regurgitation. The right ventricular systolic pressure of 29 mm of Mercury.
--- NOTE | 2023-11-22 13:34 | XRAY ---
Indication: Syncopal episode. Normal CT head. Normal carotid ultrasound. Sagittal, coronal, and axial MRI brain performed without contrast using T1, T2, FLAIR, diffusion, and ADC sequences. Comparison: None Ventriculosulcal pattern appears symmetric. A few periventricular petechial degenerative micro-ischemia signal bilaterally. No acute intracranial hemorrhage, abnormal extra-axial fluid collection, or mass effect. Diffusion images negative for restricted signal. Fourth ventricle is midline without hydrocephalus. 7/8 cranial nerve complex bilaterally symmetric. Normal flow void signal within the major intercerebral circulation. Normal appearing craniocervical junction and sella turcica. Visualized paranasal sinuses are clear. Impression: Minimal degenerative micro-ischemia within normal limits for patient's age. Remaining MRI brain without contrast exam is negative.
== END 2023-11-22 14:50 | disposition home or self-care (01) ==
LOC: ED 11:51 → MED SURG 15:37
PROVIDERS: ADMIT Internal Medicine; ATTEND Internal Medicine
DX: T58.91XA Toxic effect of carbon monoxide from unspecified source, accidental (unintentional), initial encounter (principal); R55 Syncope and collapse; R00.0 Tachycardia, unspecified; I10 Essential (primary) hypertension; F17.200 Nicotine dependence, unspecified, uncomplicated; E87.6 Hypokalemia; Z79.899 Other long term (current) drug therapy; Z20.828 Contact with and (suspected) exposure to other viral communicable diseases
CPT/HCPCS: 36000; 36415; 70450; 70551; 80053; 80307; 81001; 82805; 82947; 83036; 84443; 84484; 85025; 85027; 93005; 93041; 93268; 93306; 93880; 94760; 99285; Q3014; A9270-GY; G0378

== ENCOUNTER 2024-12-02 09:58 | Emergency (ER) | payer OTHER ==
[2024-12-02 10:29] VITALS: RESP 20; TEMP 99.1
--- NOTE | 2024-12-02 11:03 | XRAY ---
Indication: Cough. Comparison: None Portable chest hyperinflated and clear. Heart not enlarged. Bony thorax intact with degenerative changes and minimal levoscoliosis. No acute findings.
[2024-12-02 11:10] LABS: INFLUENZA B NEGATIVE (NEGATIVE); RESPIRATORY SYNCTIAL VIRUS NEGATIVE (NEGATIVE); SARS-CoV-2 Xpert Express NEGATIVE (NEGATIVE)
[2024-12-02 11:16] LABS: INFLUENZA A POSITIVE (NEGATIVE)
--- NOTE | 2024-12-02 11:30 | ERPHSYRPT ---
- History of Present Illness Time Seen by Provider: 12/02/24 11:00 Source: patient Exam Limitations: no limitations Patient Subjective Stated Complaint: Fever Triage Nursing Assessment: Patient ambulated back to ED and transferred self to bed. Patient A+O X 3. Patient's skin flushed, warm and dry. Patient complains of fever, non productive cough, body aches, fever, fatigue since Monday. Lungs clear a/p oumar. Timing/Duration: today Severity: mild Allergies/Adverse Reactions: No Known Drug Allergies Allergy (Verified 12/02/24 10:22) Home Medications: Amlodipine Besylate 5 mg [Norvasc 5 mg] 2.5 mg PO DAILY 11/21/23 [History] Hx Tetanus, Diphtheria Vaccination/Date Given: No Hx Influenza Vaccination/Date Given: No Hx Pneumococcal Vaccination/Date Given: No Immunizations Up to Date: Yes Travel Risk - International Travel Have you traveled outside of the country in past 3 weeks: No - Emerging Infectious Disease Are you exhibiting symptoms associated with any current EIDs: Yes Symptoms: Diarrhea, Fever, Headaches/Body Aches/ - Review of Systems Constitutional: No Symptoms Eyes: No Symptoms Respiratory: Cough Cardiac: No Symptoms Abdominal/Gastrointestinal: No Symptoms Genitourinary Symptoms: No Symptoms Musculoskeletal: No Symptoms - Past Medical History Pertinent Past Medical History: Yes Neurological History: No Pertinent History ENT History: No Pertinent History Cardiac History: Hypertension Respiratory History: No Pertinent History Endocrine Medical History: No Pertinent History Musculoskeletal History: No Pertinent History - Past Surgical History Past Surgical History: No - Social History Smoking Status: Current every day smoker How long have you smoked: years Exposure to second hand smoke: Yes Drug Use: none Patient Lives Alone: No - Social Determinants of Health Will the patient participate in the screening: Yes Do you worry about a steady place to live?: No Do you have any problems with any of the following?: No known problems In the past 12 months,have you had to go without utilities?: No Transportation Issues: No Has anyone in your support network made you feel unsafe?: No Have you or anyone in your house had to go without enough: No - Nursing Vital Signs Nursing Vital Signs: Initial Vital Signs Temperature 99.1 F 12/02/24 10:22 Pulse Rate 89 12/02/24 10:22 Respiratory Rate 20 12/02/24 10:22 Blood Pressure 144/81 12/02/24 10:22 O2 Sat by Pulse Oximetry 98 12/02/24 10:22 Pain Scale Pain Intensity 5 - Physical Exam General Appearance: no apparent distress Eye Exam: PERRL/EOMI Ears, Nose, Throat Exam: normal ENT inspection Neck Exam: normal inspection Respiratory Exam: normal breath sounds Cardiovascular Exam: regular rate/rhythm Gastrointestinal/Abdomen Exam: soft, normal bowel sounds SpO2: 98 Ordered Tests: Active Orders 24 hr Category Date Time Status CHEST 1 VIEW (PORTABLE) Stat Exams 12/02/24 10:37 Completed Lab/Rad Data: Laboratory Results 12/02/24 Range/Units 10:34 Influenza Type A Ag POSITIVE A (NEGATIVE) Influenza Type B Ag NEGATIVE (NEGATIVE) RSV (PCR) NEGATIVE (NEGATIVE) SARS-CoV-2 (PCR) NEGATIVE (NEGATIVE) - Progress Progress Note: patient was updated with the results and informed of the need for follow up he will be discharged home with tamiflu 12/02/24 11:28 Medical Desision Making - Discussion of managment Agreed on:: need for follow-up Will see patient: In office - Departure Clinical Impression: Influenza A, Viral syndrome Condition: Stable Critical Care Time: No Referrals: AMARIS GAGE, SEED COL[employer]OR [Primary Care Provider] - Follow up/PCP as directed Instructions: Flu in adults - ED discharge instructions Prescriptions: Oseltamivir 75 mg [Tamiflu 75MG Capsule] 75 mg PO BID #10 cap
[2024-12-02 12:12] VITALS: BP 139/67; PULSE 91; O2SAT 97
== END 2024-12-02 12:12 | disposition home or self-care (01) ==
LOC: ED 09:58
DX: J10.1 Influenza due to other identified influenza virus with other respiratory manifestations (principal); R50.9 Fever, unspecified; I10 Essential (primary) hypertension; Z79.899 Other long term (current) drug therapy; Z72.0 Tobacco use
CPT/HCPCS: 0241U; 71045; 99284; 99283